=== PATIENT | male | born 1945 | race Caucasian/White ===

== ENCOUNTER 2022-09-29 09:53 | Outpatient (REF) | payer MEDICARE, SELFPAY ==
--- NOTE | ~2022-09-29 | XR_ITS ---
EXAMINATION: XR lumbar spine 4V min CLINICAL INFORMATION: Reason for Exam M54.40 - Lumbago with sciatica, unspecified side COMPARISON: None TECHNIQUE: 5 views of the lumbar spine FINDINGS: 5 nonrib-bearing lumbar-type vertebral bodies. Vertebral body heights are maintained. Leftward scoliosis of the lumbar spine. Grade 1 anterolisthesis of L5 on S1. Grade 1 anterolisthesis of L4 on L5. No subluxation between flexion and extension views Moderate multilevel degenerative disc disease with loss of disc space height, facet arthropathy and disc osteophyte complexes. This is worst at L4/L5. Paravertebral soft tissues are unremarkable. XR/XR lumbar spine 4V min IMPRESSION: 1. Moderate spondylosis of the lumbar spine, as above detailed. 2. Spondylolisthesis, as above detailed.
== END 2022-09-29 09:54 | disposition home or self-care (01) ==
LOC: HO.HOSX 09:53
PROVIDERS: PCP Nurse Practitioner Family; Visit Provider Physician Assistant
DX: M54.40 Lumbago with sciatica, unspecified side (principal)
CPT/HCPCS: 72110; 99202

== ENCOUNTER 2023-01-04 14:07 | Outpatient (AMB) | payer MEDICARE, SELFPAY ==
--- NOTE | 2023-01-04 14:59 | A.OFFVIS_ITS ---
Intake Intake Visit Reasons: Pre-op visit Intake Note: Mr. 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: No Information Interpreted: non-clinical & clinical Allergies neomycin Allergy (Intermediate, Verified 10/18/22 12:22) eye ointment caused eye swelling oxycodone Allergy (Intermediate, Verified 10/18/22 12:17) Vomiting steri strips Allergy (Severe, Uncoded 10/18/22 12:17) blisters/pussy infection PFSH Medical History (Updated 10/18/22 @ 12:07 by Carol Zamora, RN) Arthritis Back pain Elevated cholesterol GERD (gastroesophageal reflux disease) Gout HTN (hypertension) Renal calculi Surgical History (Updated 10/18/22 @ 12:15 by Carol Zamora, RN) H/O colonoscopy History of back surgery History of carpal tunnel release History of esophagogastroduodenoscopy (EGD) History of surgery on wrist Hx of cataract extraction Hx of cholecystectomy Hx of decompression of ulnar nerve Hx of hernia repair Hx of lithotripsy Hx of meniscectomy of right knee Hx of rotator cuff surgery Hx of sinus surgery Hx of total knee replacement Hx of umbilical hernia repair Social History Are you a primary multi care technician to a significant other at home: No Do you presently have visiting nurse or other home services: No Patient Tobacco Use Status: Never used Tobacco Assessment & Plan Assessment & Plan (1) Back pain of lumbar region with sciatica: Code(s): M54.40 - Lumbago with sciatica, unspecified side Plan Dear colleague, On January 04 2023, I saw for preoperative visit Daniel Del Real . He scheduled to undergo an oblique lateral lumbar interbody fusion L3-4 and L4-5 this coming Monday for severe right lumbar radiculopathy. We went over the procedure and possible complications. We discussed expected postoperative course. I spent 15 minutes in this consult. I will keep you updated on his progress. Taiwo Tesfaye MD, PhD Spine Fellowship Trained Neurosurgeon Director, [facility] Medications: Discontinued tramadol 1-2 tabs orally every 6 hours PRN; partial fill upon request 40 tabs 0RF pain Coding Level of Care Code Est Pt Level 1 (81312) Diagnoses Back pain of lumbar region with sciatica M54.40
== END 2023-01-04 16:25 | disposition home or self-care (01) ==
PROVIDERS: PCP Nurse Practitioner Family; Visit Provider Neurological Surgery
DX: M54.40 Lumbago with sciatica, unspecified side (principal)

== ENCOUNTER → 2023-01-04 14:07 | Outpatient (BNVA) | payer MEDICARE, SELFPAY | PROVIDERS: PCP Nurse Practitioner Family; Visit Provider Neurological Surgery | DX: M54.40 Lumbago with sciatica, unspecified side (principal) | CPT/HCPCS: 99211 ==

== ENCOUNTER 2023-01-09 07:34 | Inpatient (IN) | payer MEDICARE, SELFPAY ==
--- NOTE | 2022-10-18 | ECG_ITS ---
Test Reason : preop Blood Pressure : / mmHG Vent. Rate : 067 BPM Atrial Rate : 067 BPM P-R Int : 188 ms QRS Dur : 094 ms QT Int : 406 ms P-R-T Axes : 058 003 214 degrees QTc Int : 429 ms Sinus rhythm with occasional Premature ventricular complexes T wave abnormality, consider lateral ischemia Abnormal ECG No previous ECGs available Referred By: Stella Chavarria Electronically Signed By:ROSEANN SOLIS MD
[2022-10-18 12:22] VITALS: BP 150/94; PULSE 70; RESP 20; O2SAT 97; BMI 34.3
--- NOTE | 2022-10-18 12:38 | P.CONAN_ITS ---
HPI - Anesthesia Eval Consult details Narrative: 76yo M for Right L3,4,5 Transkambin Lumbar Interbody Fusion 10/31/22 PMFSH Active Problems Active Problems: All Active Problems (Updated 10/18/22 @ 12:07 by Carol Zamora RN) Back pain of lumbar region with sciatica (Acute) Past Medical History Medical History (Updated 10/18/22 @ 12:07 by Carol Zamora RN) Arthritis Back pain Elevated cholesterol GERD (gastroesophageal reflux disease) Gout HTN (hypertension) Renal calculi Family History Family history of problems with anesthesia: No Surgical History Surgical History (Updated 10/18/22 @ 12:15 by Carol Zamora RN) H/O colonoscopy History of back surgery History of carpal tunnel release History of esophagogastroduodenoscopy (EGD) History of surgery on wrist Hx of cataract extraction Hx of cholecystectomy Hx of decompression of ulnar nerve Hx of hernia repair Hx of lithotripsy Hx of meniscectomy of right knee Hx of rotator cuff surgery Hx of sinus surgery Hx of total knee replacement Hx of umbilical hernia repair History of Problems with Anesthesia: Yes (Severe N/V after last back surgery) Social History Social History Are you a primary career discovery teacher to a significant other at home: No Do you presently have visiting nurse or other home services: No Patient Tobacco Use Status: Never used Tobacco Use of substances other than those prescribed or required for medical reasons: No Have you been hit, kicked, punched, or otherwise hurt by someone within the past year? If so, by whom?: No Are you DNR?: Yes Advance Directives Information Provided: Yes (as above noted-will bring copies DOS) Advance Directives on File: No Recently lost weight without trying: No Eating poorly because of decreased appetite: No Nutrition Risks: Surgical patient >75years Poor oral hygiene: No (missing tooth upper left) Narrative Narrative: No recent illness No CP/SOB within limits of pain. Minimal activity. Meds Allergies Allergy/AdvReac Type Severity Reaction Status Date / Time neomycin Allergy Intermediate eye Verified 10/18/22 12:22 ointment caused eye swelling oxycodone Allergy Intermediate Vomiting Verified 10/18/22 12:17 steri strips Allergy Severe blisters/pussy Uncoded 10/18/22 12:17 infection Home Medications Medication Instructions Recorded Confirmed Last Taken Type allopurinol 100 mg tablet 100 mg PO QAM 05/01/23 05/02/23 Unknown History celecoxib 100 mg capsule 100 mg PO TID 10/17/22 10/18/22 Unknown History enalapril maleate 20 mg tablet 40 mg PO BID 10/17/22 10/18/22 Unknown History fluticasone propionate 50 1 spray intranasal BEDTIME 10/17/22 10/18/22 Unknown History mcg/actuation nasal spray,suspension gabapentin 300 mg capsule 300 mg PO TID 10/17/22 10/18/22 Unknown History mirabegron 25 mg tablet,extended 25 mg PO BID 10/17/22 10/18/22 Unknown History release 24 hr (Myrbetriq) omeprazole 10 mg capsule,delayed 20 mg PO QPM 10/17/22 10/18/22 Unknown History release rosuvastatin 10 mg tablet 10 mg PO 3XW 10/17/22 10/18/22 Unknown History verapamil 240 mg 24 hr 240 mg PO BID 10/17/22 10/18/22 Unknown History capsule,extended release calcium carbonate 600 mg-vitamin 1 tab PO DAILY 10/18/22 10/18/22 Unknown History D3 5 mcg (200 unit) tablet tramadol 50 mg tablet 50 mg PO Q6H PRN pain 10/18/22 10/18/22 Unknown History Exam Exam Date and Time: October 18, 2022 1238 Height,Weight and Vital Signs: Height 5 ft 8 in Weight 102.2 kg Last Vital Signs Pulse 70 10/18/22 12:22 Resp 20 10/18/22 12:22 BP 150/94 H 10/18/22 12:22 Pulse Ox 97 10/18/22 12:22 O2 Del Method Room Air 10/18/22 12:22 Airway Mallampati Class: I TM Dist: >3cm Neck ROM: Full Loose/Missing/Broken Teeth: Yes (1 x molar pulled, crowened molars) Heart: RRR Lungs: CTAB Assessment and Plan Assessment Anesthesia Assessment: Anesthesia Plan Discussed and PAT Visit Final Anesthetic Review Family History of Problems with Anesthesia: No History of Problems with Anesthesia: Yes (Severe N/V after last back surgery)
[2022-10-18 13:20] LABS: Hematocrit 44.5 % (42.0-52.0); Hemoglobin 14.5 g/dl (14.0-18.0); Mean Corpuscular HGB Conc 32.6 g/dl (31.0-36.0); Mean Corpuscular Hemoglobin 32.2 pg (27.0-33.0); Mean Corpuscular Volume 98.9 fL (80.0-98.0); Mean Platelet Volume 9.6 fL (9.4-12.4); Platelet Count 236 X10*3/uL (160-400); Red Cell Distribution Width 13.2 % (11.0-16.0)
[2022-10-18 13:41] LABS: Anion Gap 10 (12-20); Blood Urea Nitrogen 16 mg/dL (9-16); Calcium 9.9 mg/dL (8.4-10.2); Carbon Dioxide 31 mmol/L (22-29); Chloride 106 mmol/L (96-108); Creatinine Clr Calc Pharmacy 67.8; Estimated Glomerular Filt Rate > 60; Glucose Random 83 mg/dL (60-115); Potassium 4.8 mmol/L (3.3-5.1); Sodium 142 mmol/L (135-145)
--- NOTE | 2023-01-06 09:34 | HO.ANESPROP2 ---
Documented by User: Stella Chavarria NP 01/06/23 09:40 HPI - Anesthesia Eval Consult details Narrative: 77yo M for Right L3,4,5 Transkambin Lumbar Interbody Fusion PMFSH Active Problems Active Problems: All Active Problems (Updated 10/18/22 @ 12:07 by Carol Zamora RN) Back pain of lumbar region with sciatica (Acute) Past Medical History Medical History (Updated 10/18/22 @ 12:07 by Carol Zamora RN) Arthritis Back pain Elevated cholesterol GERD (gastroesophageal reflux disease) Gout HTN (hypertension) Renal calculi Family History Family history of problems with anesthesia: No Surgical History Surgical History (Updated 10/18/22 @ 12:15 by Carol Zamora RN) H/O colonoscopy History of back surgery History of carpal tunnel release History of esophagogastroduodenoscopy (EGD) History of surgery on wrist Hx of cataract extraction Hx of cholecystectomy Hx of decompression of ulnar nerve Hx of hernia repair Hx of lithotripsy Hx of meniscectomy of right knee Hx of rotator cuff surgery Hx of sinus surgery Hx of total knee replacement Hx of umbilical hernia repair History of Problems with Anesthesia: Yes Social History Social History Are you a primary health careers instructor to a significant other at home: No Do you presently have visiting nurse or other home services: No Patient Tobacco Use Status: Never used Tobacco Meds Allergies Allergy/AdvReac Type Severity Reaction Status Date / Time neomycin Allergy Intermediate eye Verified 10/18/22 12:22 ointment caused eye swelling oxycodone Allergy Intermediate Vomiting Verified 10/18/22 12:17 steri strips Allergy Severe blisters/pussy Uncoded 10/18/22 12:17 infection Home Medications Medication Instructions Recorded Confirmed Last Taken Type allopurinol 100 mg tablet 100 mg PO QAM 10/17/22 10/18/22 01/09/23 04:30 History celecoxib 100 mg capsule 100 mg PO TID 10/17/22 10/18/22 Unknown History enalapril maleate 20 mg tablet 40 mg PO BID 10/17/22 10/18/22 Unknown History fluticasone propionate 50 1 spray intranasal BEDTIME 10/17/22 10/18/22 Unknown History mcg/actuation nasal spray,suspension gabapentin 300 mg capsule 300 mg PO TID 10/17/22 10/18/22 01/09/23 04:30 History mirabegron 25 mg tablet,extended 25 mg PO BID 10/17/22 10/18/22 Unknown History release 24 hr (Myrbetriq) omeprazole 10 mg capsule,delayed 20 mg PO QPM 10/17/22 10/18/22 Unknown History release rosuvastatin 10 mg tablet 10 mg PO 3XW 10/17/22 10/18/22 Unknown History verapamil 240 mg 24 hr 240 mg PO BID 10/17/22 10/18/22 01/09/23 04:30 History capsule,extended release calcium carbonate 600 mg-vitamin 1 tab PO DAILY 10/18/22 10/18/22 Unknown History D3 5 mcg (200 unit) tablet Exam Exam Date and Time: January 06, 2023 0934 Height,Weight and Vital Signs: Height 5 ft 8 in Weight 102.2 kg Last Vital Signs Pulse 70 10/18/22 12:22 Resp 20 10/18/22 12:22 BP 150/94 H 10/18/22 12:22 Pulse Ox 97 10/18/22 12:22 O2 Del Method Room Air 10/18/22 12:22 Pertinent Lab Results Pertinent Lab Results: Laboratory Tests 10/18/22 10/18/22 13:07 13:07 WBC 8.0 RBC 4.50 L Hgb 14.5 Hct 44.5 MCV 98.9 H MCH 32.2 MCHC 32.6 RDW 13.2 Plt Count 236 MPV 9.6 Absolute Nucleated RBC 0.000 Nucleated RBC % (auto) 0.0 Sodium 142 Potassium 4.8 Chloride 106 Carbon Dioxide 31 H Anion Gap 10 L BUN 16 Creatinine 1.09 Estim Creat Clear Calc 67.8 Estimated GFR > 60 Random Glucose 83 Calcium 9.9 Narrative Narrative: EKG 10/2022 Vent. Rate : 067 BPM ? ? Atrial Rate : 067 BPM ?? P-R Int : 188 ms? QRS Dur : 094 ms ? ? QT Int : 406 ms ? ? ? P-R-T Axes : 058 003 214 degrees ?? QTc Int : 429 ms ? Sinus rhythm with occasional Premature ventricular complexes T wave abnormality, consider lateral ischemia Abnormal ECG No previous ECGs available ECHO LV systolic function is normal. Regional wall motion abnormalities no well visualized but grossly nml. LVEF 55-60%. Nml LV wall thickness. Mild DD. RV is nml size. AV is trileaflet and mildly thickened. No aortic stenosis Assessment and Plan Final Anesthetic Review Family History of Problems with Anesthesia: No History of Problems with Anesthesia: Yes Documented by User: Marin Izquierdo MD 01/09/23 07:34 [facility] Past Medical History Medical History (Updated 10/18/22 @ 12:07 by Carol Zamora, KELSY) Arthritis Back pain Elevated cholesterol GERD (gastroesophageal reflux disease) Gout HTN (hypertension) Renal calculi Surgical History Surgical History (Updated 10/18/22 @ 12:15 by Carol Zamora RN) H/O colonoscopy History of back surgery History of carpal tunnel release History of esophagogastroduodenoscopy (EGD) History of surgery on wrist Hx of cataract extraction Hx of cholecystectomy Hx of decompression of ulnar nerve Hx of hernia repair Hx of lithotripsy Hx of meniscectomy of right knee Hx of rotator cuff surgery Hx of sinus surgery Hx of total knee replacement Hx of umbilical hernia repair History of Problems with Anesthesia: Yes (ponv) Social History Social History Are you a primary health careers instructor to a significant other at home: No Do you presently have visiting nurse or other home services: No Patient Tobacco Use Status: Never used Tobacco Meds Allergies Allergy/AdvReac Type Severity Reaction Status Date / Time neomycin Allergy Intermediate eye Verified 10/18/22 12:22 ointment caused eye swelling oxycodone Allergy Intermediate Vomiting Verified 10/18/22 12:17 steri strips Allergy Severe blisters/pussy Uncoded 10/18/22 12:17 infection Home Medications Medication Instructions Recorded Confirmed Last Taken Type allopurinol 100 mg tablet 100 mg PO QAM 10/17/22 10/18/22 01/09/23 04:30 History celecoxib 100 mg capsule 100 mg PO TID 10/17/22 10/18/22 Unknown History enalapril maleate 20 mg tablet 40 mg PO BID 10/17/22 10/18/22 Unknown History fluticasone propionate 50 1 spray intranasal BEDTIME 10/17/22 10/18/22 Unknown History mcg/actuation nasal spray,suspension gabapentin 300 mg capsule 300 mg PO TID 10/17/22 10/18/22 01/09/23 04:30 History mirabegron 25 mg tablet,extended 25 mg PO BID 10/17/22 10/18/22 Unknown History release 24 hr (Myrbetriq) omeprazole 10 mg capsule,delayed 20 mg PO QPM 10/17/22 10/18/22 Unknown History release rosuvastatin 10 mg tablet 10 mg PO 3XW 10/17/22 10/18/22 Unknown History verapamil 240 mg 24 hr 240 mg PO BID 10/17/22 10/18/22 01/09/23 04:30 History capsule,extended release calcium carbonate 600 mg-vitamin 1 tab PO DAILY 10/18/22 10/18/22 Unknown History D3 5 mcg (200 unit) tablet Exam Airway Mallampati Class: III TM Dist: >3cm Neck ROM: Poor Heart: rrr Assessment and Plan Assessment Anesthesia Assessment: Anesthesia Plan Discussed and Chart Reviewed Final Anesthetic Review History of Problems with Anesthesia: Yes (ponv) NPO: Yes ASA Class: III Final Preanesthetic Review: No Changes in Pt Med Stat, Meds/Allgs Chart Reviewed, Consent Obtained/Reviewed, Anes Risks/Benef Reviewed and DNR Form (If Appl.) Patient Risk: Intermediate Procedure Risk: Intermediate Anesthetic Plan Anesthetic Plan: GA and Agree w/ Assess. and Plan Disposition: Standard PACU
[2023-01-09] VITALS (27 sets, daily range): BP systolic 97–159; BP diastolic 50–89; PULSE 67–89; RESP 14–18; TEMP 36.1–36.8; O2SAT 89–98
--- NOTE | ~2023-01-09 | FL_ITS ---
EXAMINATION: FL FLUOROSCOPY-GUIDANCE IN OR CLINICAL INFORMATION: Lumbar interbody fusion. COMPARISON: 01/06/2023 and 09/29/2022. TECHNIQUE: Fluoroscopy Supervised By: Dr. Tesfaye. Fluoroscopy Time: 3.2 minutes. Cumulative Dose: 240 mGy. DAP: 47 Gycm2. Images: 2. FINDINGS: 2 intraoperative images demonstrate posterior fusion with pedicle screws and rods L3-L5 and interdisc spacers in place. Hardware appears intact. FL/FL guidance in OR IMPRESSION: Intraoperative fluoroscopy for orthopedic procedure.
[2023-01-09] MEDS: methocarbamoL 750 MG TABLET PO (06:38)
[2023-01-09] MEDS: Lactated Ringers 1,000 ML 100 ML IVCONT (06:46)
--- NOTE | 2023-01-09 07:20 | MHC.SHP ---
Pre-Procedural Eval Section A Date of Service: 01/09/23 The patient is an INPATIENT: No Changes since office visit: No Cold of Flu in the past 2 weeks, No New Medical Problems, No Changes in Medication and No Patient answered all questions The History & Physical has been completed within 30 days and I have reviewed it.: No Section B Chief Complaint: Lumbago with sciatica, unspecified side,Scoliosis Relevant Family History (Specify if Yes): No Relevant Social History: None Present Medications: None Medical History: No relevant PMH History of Previous Operations: No relevant previous surgery Allergies: Allergies Allergy/AdvReac Type Severity Reaction Status Date / Time neomycin Allergy Intermediate eye Verified 10/18/22 12:22 ointment caused eye swelling oxycodone Allergy Intermediate Vomiting Verified 10/18/22 12:17 steri strips Allergy Severe blisters/pussy Uncoded 10/18/22 12:17 infection Review of Systems Sugical H&P ROS: Negative: Constitution, Cardiovascular, Respiratory, Neurological, Psychiatric, Hem-Onc, Allergic/Immunologic, Gastrointestinal, Genitourinary, Musculoskeletal, Integumentary, Endocrine and Eyes/Ears/Nose/Throat Exam Surgical H&P Exam: Not Evaluated: HEENT, Not Evaluated: Heart, Not Evaluated: Lungs, Not Evaluated: Extremities, Not Evaluated: Abdomen, Not Evaluated: Skin and Not Evaluated: Neurological Plan Diagnosis/Plan: Unchanged I have reviewed the history and physical and performed a pertinent physical examination on my patient. No changes have occurred unless specified. L3-4, L4-5 oblique lateral lumbar interbody fusion, right side approach Time Spent With Patient Time: Total time managing care of this patient today _10___ minutes.
[2023-01-09] MEDS: fentaNYL citrate/PF 100 MCG/2 ML VIAL 25 MCG IVPUSH ×4 (11:28→11:52)
--- NOTE | 2023-01-09 11:50 | W.PM.OPN ---
Operative Note Operative Note Date of Service: 01/09/23 Narrative: Preoperative Diagnosis: (1) lumbar degenerative scoliosis; spinal stenosis; neurogenic claudication (2) Procedure: 1) L3-4 and L4-5 oblique lateral lumbar interbody fusion with discectomy, preparation of the endplates and placement of a bullet cage packed with allograft, anterior to the transverse process and modified prone position, with intraoperative biplanar fluoroscopy imaging and electrophysiological monitoring 2) L3-L5 posterior minimally invasive pedicle screw placement and posterior lateral instrumentation and fusion with electrophysiological monitoring Consent Informed Consent was obtained for this operation. I have explained the nature, purpose and benefits of the operation. I have discussed the risks and benefit of the operation including possible complications or adverse events with patient/family. Alternative(s) were discussed with the patient with their relative benefits and risks as well as the consequences of not accepting the operation were included in obtaining consent. Surgeon: LORNA MCKINNON MD, PHD Procedure Assisted By: Nando Calix PA-C Description of Procedure: Since this 77-year-old male suffering from severe right lumbar radiculopathy due to lumbar degenerative scoliosis and spinal stenosis. The patient was offered an oblique lumbar lateral interbody fusion followed by a posterior lateral instrumented fusion L3-L5. The procedure and complications were explained and the patient was consented. The patient was brought to the operating room and endotracheally intubated. The patient was put in a prone position on the [place] spine table. 2C arms were installed for fluoroscopy. Prepping and draping was done followed by timeout. The landmarks, including spinal processes, transverse processes, disc space, endplates and pedicles are identified and marked. The following steps are taken for the L3-4 and L4-5 levels: Cage sizes 10 mm high and 33 mm long titanium . A small incision was made superior to the mid iliac crest and then using biplanar fluoroscopy visualization, under electrophysiological monitoring and stimulation, we introduced an electrophysiological probe through the retroperitoneal space into the desired disc, anterior to the transverse process and then passed it into the disc space after finding a silent window. The sleeve was retained and the probe was removed, then the K wire was passed sequentially into the disc space. A dilating tube was then passed along the same route. Following this, a working channel was manually held in position while a series of disc cleaning tools were passed through the channel to remove the affected disc under clear and direct biplanar fluoroscopic visualization, decompress the nerve roots and equal corticated vertebral endplates at this segment. Arthrodesis of the intervertebral space for an anterior retroperitoneal exposure and application of intervertebral biomechanical device was then accomplished by using the working channel that had been placed into the retroperitoneal space anterior to the transverse process. After adequate decompression and preparation of the endplates, we then put allograft anterior into the disc space followed by a titanium interbody spacer, which is packed tightly with allograft bone for stabilization and arthrodesis of the anterior vertebral space and inserted the cage into the midportion of the intervertebral disc. This again was done on the biplanar fluoroscopic visualization. All bone was confined to the borders of the disc space. The following steps are then taken for the L3-L5 level: Bilateral L3, L4 and L5 screws with a diameter of 6.5 x 45 mm. 2C arms were installed for fluoroscopy. A right paramedian incision was made lateral from the right L3 pedicle. The Pediguard tap was used to create a transpedicular trajectory into the vertebral body. The K wire was inserted. The steps were repeated for the left L3, bilateral L4 and L5 pedicles, A specially designed instrument was passed over the K wires to decorticate the posterior lateral gutter. A total of 6 pedicle screws were inserted with the above-mentioned diameters for the L3-L5 level. Bilaterally a 75 mm vivi was inserted and locked down with locking caps. Final x-rays and AP and lateral projection showed good position of the interbody device and instrumentation. Allograft was laid down in the posterior lateral gutter to complete the posterior lateral fusion. The paramedian incisions and the incision in the flank were closed in 2 layers. Significant oozing was seen from the flank incision and a fair amount of blood loss occurred. Dermabond was used to approximate the incisions. An OpSite with Tegaderm was used to cover the incision. All sponge and needle counts were correct. The patient was extubated and transported in a stable condition to the recovery room. This procedure was done with the aid of a physican's restaurant assistant manager as a qualified resident was not available. The physician restaurant assistant manager was critical for the following aspects of surgery : Insertion of the rods, locking down with locking caps and hemostasis Anesthesia: General Estimated Blood Loss (ml): 250 Specimen: None Duration of Surgery: 2.5 hours Postoperative Plan: Admit to floor for monitoring
[2023-01-09] MEDS: HYDROmorphone HCl 0.5 MG/0.5 ML SYRINGE 0.25 MG IVPUSH ×4 (11:57→12:13)
[2023-01-09] MEDS: ceFAZolin Sodium/Dextrose,Iso 2 GM/50 ML PIGGYBACK IV ×2 (14:34→19:25)
[2023-01-09] MEDS: 0.9 % Sodium Chloride 1,000 ML 75 ML IVCONT (14:42)
--- NOTE | 2023-01-09 14:54 | PHA.MEDREC ---
med rec completed, no issues Pharmacy Consult ? Medication Reconciliation Pharmacy has completed the medication reconciliation.
[2023-01-09] MEDS: Acetaminophen 1,000 MG/100 ML PIGGYBACK 400 MG IV ×2 (15:10→22:06)
[2023-01-09] MEDS: Gabapentin 300 MG CAPSULE PO ×2 (15:11→19:20)
[2023-01-09] MEDS: Ketorolac Tromethamine 15 MG/ML VIAL IVPUSH ×2 (16:36→23:11)
[2023-01-09] MEDS: HYDROmorphone HCl 1 MG/ML SYRINGE IVPUSH ×2 (18:04→23:49)
[2023-01-09] MEDS: Atorvastatin Calcium 40 MG TABLET PO (19:20)
[2023-01-09] MEDS: Docusate Sodium 100 MG CAPSULE PO (19:20)
[2023-01-09] MEDS: Mirabegron 25 MG TAB.ER.24H PO (19:20)
[2023-01-09] MEDS: Enalapril Maleate 10 MG TABLET 20 MG PO (19:21)
[2023-01-09] MEDS: VerapamiL HCL SR 240 MG TABLET.ER PO (19:21)
[2023-01-09] MEDS: Omeprazole 20 MG CAPSULE.DR PO (19:21)
[2023-01-09] MEDS: Fluticasone Propionate Nasal 16 GM SPRAY 1 SPRAY NOSTRIL-B (19:22)
[2023-01-10] MEDS: ceFAZolin Sodium/Dextrose,Iso 2 GM/50 ML PIGGYBACK IV (01:56)
[2023-01-10] MEDS: 0.9 % Sodium Chloride 1,000 ML 75 ML IVCONT (03:42)
[2023-01-10] MEDS: Acetaminophen 1,000 MG/100 ML PIGGYBACK 400 MG IV (03:48)
[2023-01-10 03:54] VITALS: BP 129/62; PULSE 74; RESP 17; TEMP 36.6; O2SAT 95
[2023-01-10] MEDS: Ketorolac Tromethamine 15 MG/ML VIAL IVPUSH (04:58)
--- NOTE | 2023-01-10 05:05 | PC.NURSE ---
Pt was stable all night, Neuro WNL, still with mild and on and off surgical site pain, due meds alternate with prn were effective, pt was able to ambulate along the hallway and tolerated, dressings were soaked with blood, dressing changed and no persistent oozing noted.
[2023-01-10] MEDS: HYDROmorphone HCl 1 MG/ML SYRINGE IVPUSH (06:31)
[2023-01-10 07:29] VITALS: BP 151/72; PULSE 76; RESP 16; TEMP 36.6; O2SAT 94
--- NOTE | 2023-01-10 07:43 | HO.NEUROPN_ITS ---
Neurosurgery Operative Note Date of Service: 01/10/23 Narrative: POD: 1 Procedure: L3-4, L4-5 Transkambin lumbar fusion. Patient reports he is up walking around is otherwise doing well. He feels his symptoms are much better than pre-operatively. He still reports mild pain 4/10, with good relief with pain medication. He is voiding well, tolerating diet. Afebrile, vital signs stable. Full strength 5/5 UE / LE. Back dressings have some staining without signs of hematoma. No active sanguineous drainage. Area is dry. POD: 1 Procedure: L3-4, L4-5 transkambin lumbar fusion otherwise doing well. Has met all medical criteria for discharge. Will be sending him home. Seen at bedside w kenneth Tesfaye.
--- NOTE | 2023-01-10 07:52 | PM.DS ---
DS: Providers Provider Date of Service: 01/09/23 <ROMULO Lopez - Last Filed: 01/10/23 07:59> Date of admission: 01/09/23 07:34 <ROMULO Lopez Last Filed: 01/10/23 07:59> Date of discharge: 01/10/23 <ROMULO Lopez - Last Filed: 01/10/23 07:59> Primary care physician: ELVER Campos <ROMULO Lopez - Last Filed: 01/10/23 07:59> DS: Diagnosis Discharge Diagnosis (1) Back pain of lumbar region with sciatica: Status: Acute <ROMULO Lopez Last Filed: 01/10/23 07:59> DS: Summary Time Spent with Patient Time attestation: Total time managing care of this patient today ____ minutes. <ROMULO Lopez Last Filed: 01/10/23 07:59> Discharge coordination time: Less than 30 minutes <ROMULO Pelayo - Last Filed: 01/10/23 08:17> Quality: Safe Use of Opioids Does Pt have an Active Cancer Diagnosis on the Problem List?: No <ROMULO Pelayo Last Filed: 01/10/23 08:17> Quality: Stroke Does the patient have a stroke diagnosis?: No <ROMULO Pelayo Last Filed: 01/10/23 08:17> Physical Exam Vital Signs: Vital Signs: Last Vital Signs Temp 97.9 F 01/10/23 07:29 Pulse 76 01/10/23 07:29 Resp 16 01/10/23 07:29 BP 151/72 H 01/10/23 07:29 Pulse Ox 94 01/10/23 07:29 O2 Del Method Room Air 01/10/23 07:29 O2 Flow Rate 2 01/09/23 13:40 BMI result Body Mass Index 34.3 <ROMULO Lopez Last Filed: 01/10/23 07:59> Discharge Plan Discharge Anticipated Discharge Date/Time: 01/10/23 07:54 <ROMULO Lopez Last Filed: 01/10/23 07:59> Patient Disposition: Home, Self-Care <ROMULO Lopez Filed: 01/10/23 07:59> Discharge Diagnosis: S/P Lumbar fusion <ROMULO Lopez - Last Filed: 01/10/23 07:59> S/P Lumbar fusion <ROMULO Pelayo - Last Filed: 01/10/23 08:17> Referrals: Danisha Ayon, [employer]ING AND [employer]ESSING SUPERVISOR [Primary Care Provider] - 1 Week <ROMULO Lopez - Last Filed: 01/10/23 07:59> Discharge Medications: New hydrocodone-acetaminophen 5-300 mg tablet See Rx Instructions .ROUTE .COMPLEX PRN (Reason: pain) Qty: 40 0RF Rx Instructions: 1-2 tabs as needed po q4h for moderate pain. Partial Fill upon patient request. methocarbamol 500 mg tablet 500 mg PO TID Qty: 30 0RF Continued tramadol 50 mg tablet 50 mg PO Q6H PRN (Reason: pain) Qty: 30 0RF enalapril maleate 20 mg tablet 20 mg PO BID allopurinol 100 mg tablet 100 mg PO QAM omeprazole 10 mg capsule,delayed release(DR/EC) 10 mg PO BEDTIME gabapentin 300 mg capsule 300 mg PO TID fluticasone propionate 50 mcg/actuation spray,suspension 1 spray intranasal BEDTIME verapamil 240 mg capsule,ext rel. pellets 24 hr 240 mg PO BID rosuvastatin 10 mg tablet 10 mg PO 3XW Myrbetriq 25 mg tablet extended release 24 hr 25 mg PO BEDTIME calcium carbonate-vitamin D3 600 mg-5 mcg (200 unit) Tablet 1 tab PO DAILY <ROMULO Lopez - Last Filed: 01/10/23 07:59> Discharge Orders: Discharge Order (Routine); Ordered 01/10/23 Ordered By: Migue Ellison <ORMULO Lopez - Last Filed: 01/10/23 07:59> Diet: Advance to usual diet <ROMULO Lopez - Last Filed: 01/10/23 07:59> Advance to usual diet <ROMULO Pelayo - Last Filed: 01/10/23 08:17> Activity on Discharge: As tolerated <ROMULO Lopez Last Filed: 01/10/23 07:59> As tolerated <ROMULO Pelayo - Last Filed: 01/10/23 08:17> Stand Alone Forms: Patient Portal Discharge page <ROMULO Lopez - Last Filed: 01/10/23 07:59> Activity Restrictions/Additional Instructions: After your spinal surgery we ask you to observe the following restrictions/guidelines: Activity: It is normal to feel some discomfort as you increase your activity, but that will improve with time. We ask you avoid heavy lifting or acitivities that cause pain. As a general rule, 8lbs is a safe limit for lifting right after surgery. Walk as much as you feel comfortable but not to exhaustion. You will feel extra tired the first few days after surgery. Stay well hydrated. It is OK to walk up and down stairs You may return to driving when you are off narcotics (such as vicodin, oxycodone, dilaudid, etc), and you are back to normal functional capacity. If you have any concerns please check with office before driving. Return to work is specific to each patient and each surgery, so please speak with your doctor/PA at first follow up. Please bring paperwork such as FMLA at that time if you need it filled out. Medications: We will give you a short supply of narcotics after surgery (usually one weeks worth). If you need more please call the office but do not use more than prescribed. You will need to give our office 48 hours notice if you need narcotics refilled and we do not fill narcotics on weekends or evenings. If you are on a narcotic, it is a good idea to take a stool softener such as colace or senna to avoid constipation If you take blood thinner such as aspirin, Plavix, Coumadin, Effient, Eliquis etc for conditions such as Afib, DVT, Pulmonary embolus, coronary disease, stents etc please speak with your surgeon about specific details as to when you can resume these medications. You can resume NSAIDs on post op day 1 (eg: Motrin, Naproxen, etc). Follow up: Please call the office, , after surgery to arrange a 3 week follow up for wound check. Wound Care: You may remove your dressing on the first day after surgery. You may leave open to air. Please do not remove the steri strips underneath. they will fall off on their own in one week. IT IS NORMAL FOR THE WOUND TO OOZE OR BE BLOODY FOR A FEW DAYS AFTER SURGERY. IF THIS HAPPENS JUST PLACE NEW DRESSING OVER IT TO AVOID STAINING CLOTHES. You may shower on post op day # 1 We ask that you do not let the water soak the wound. If it does get wet, just towel dry lightly. Please do not scrub your incision or place any type of chemical/ointment on the wound. No tub baths, pools or jacuzzis for one month. If you have any leaking or redness from your wound, or fevers, please call office <ROMULO Lopez - Last Filed: 01/10/23 07:59> Care Plan Goals: D/C home <ROMULO Lopez - Last Filed: 01/10/23 07:59> Health Concerns: None <ROMULO Lopez - Last Filed: 01/10/23 07:59> Plan of Treatment: D/C home <ROMULO Lopez - Last Filed: 01/10/23 07:59> Assessment: Stable <ROMULO Lopez - Last Filed: 01/10/23 07:59>
[2023-01-10] MEDS: Enalapril Maleate 10 MG TABLET 20 MG PO (08:04)
[2023-01-10] MEDS: Docusate Sodium 100 MG CAPSULE PO (08:04)
[2023-01-10] MEDS: Gabapentin 300 MG CAPSULE PO (08:04)
[2023-01-10] MEDS: allopurinoL 100 MG TABLET PO (08:04)
[2023-01-10] MEDS: VerapamiL HCL SR 240 MG TABLET.ER PO (08:04)
--- NOTE | 2023-01-10 08:37 | MHC.CM.PN ---
pt dcd home no skilled servcies ordered by
--- NOTE | 2023-01-10 14:32 | HO.POSTANES ---
Post Anesthesia Evaluation Post Anesthesia Evaluation Date of Service: 01/10/23 Vital Signs: Vital Signs Temp Pulse Resp BP Pulse Ox O2 Del Method 01/10/23 07:29 97.9 F 76 16 151/72 H 94 Room Air 01/10/23 03:54 97.9 F 74 17 129/62 95 Room Air Anesthesia: General Endotracheal-GETA Mental Status: Awake Pain Control: Satisfactory Nausea/Vomiting: None Hydration: Adequate Anesthesia-Related Issues: No Anes. Related Issues
== END 2023-01-10 10:10 | disposition home or self-care (01) | DRG 458 ==
LOC: HO.SSSA 07:44 → HO.S3 13:50
PROVIDERS: Neurological Surgery; Nurse Practitioner; Admitting Provider Physician Assistant; PCP Nurse Practitioner Family; Visit Provider Physician Assistant
PROC: 0SG00A0 Fusion of Lumbar Vertebral Joint with Interbody Fusion Device, Anterior Approach, Anterior Column, Open Approach (ICD-10-PCS; principal; 2023-01-09 07:30)
DX: M48.062 Spinal stenosis, lumbar region with neurogenic claudication (principal); M41.56 Other secondary scoliosis, lumbar region; E78.00 Pure hypercholesterolemia, unspecified; K21.9 Gastro-esophageal reflux disease without esophagitis; I10 Essential (primary) hypertension; M10.9 Gout, unspecified; Z79.899 Other long term (current) drug therapy
CPT/HCPCS: 36415; 80048; 85027; 93005; 97116; 97161; C1713; J0131; J0330; J0690; J1100; J1170; J1885; J2250; J2370; J2371; J2405; J3010; L8699

== ENCOUNTER → 2023-01-09 07:34 | Outpatient (BNV) | payer MEDICARE, SELFPAY | PROVIDERS: Admitting Provider Physician Assistant; PCP Nurse Practitioner Family; Visit Provider Neurological Surgery | DX: M48.062 Spinal stenosis, lumbar region with neurogenic claudication (principal); M41.9 Scoliosis, unspecified | CPT/HCPCS: 20930; 22558; 22585; 22612; 22614; 22840; 22853; 63056; 63057 ==

== ENCOUNTER 2023-01-30 13:51 | Outpatient (AMB) | payer MEDICARE, SELFPAY ==
--- NOTE | 2023-01-27 09:47 | ...WebTmpl.AM.PHNO ---
Nursing Note Patient was called this morning to discuss message that was left with medical concierge. He is s/p L3-4 L4-5 Transkambin on 01/09. He states that yesterday he incidentally discovered a lump on his back lateral to the incision site. He states that yellow / bloody fluid was expressed from the lump by his with mild-moderate pressure. He states that the area oozed from last night until this morning, but he believes it has stopped producing any additional fluid. He estimates the lump to be roughly 1/2 inch by 3/4 inch. He reports no constitutional symptoms, no fever, no chills, no sweating, no weakness. Case discussed with Dr. Tesfaye, who agrees that the patient should be started on an Abx regimen today. Will prescribe Doxycycline 100mg BID x 7 days. He has his 3 week f/u on Monday, but will be offered a sooner appointment first thing on Monday. Patient will be encouraged to call us back for any other concerns or issues / symptom development over the weekend.
--- NOTE | 2023-01-30 14:21 | HO.SPINEOV ---
Intake Intake Visit Reasons: 3 week post op Allergies neomycin Allergy (Intermediate, Verified 10/18/22 12:22) eye ointment caused eye swelling oxycodone Allergy (Intermediate, Verified 10/18/22 12:17) Vomiting steri strips Allergy (Severe, Uncoded 10/18/22 12:17) blisters/pussy infection Assessment & Plan Assessment & Plan (1) S/P lumbar fusion: Code(s): Z98.1 - Arthrodesis status Plan Mr. Del Real was seen early today for his 3 week follow up alongside evaluation of incision site lump with drainage s/p L3-4 L4-5 Transkambin on 01/09. See phone note under nursing tab for further information regarding this issue. He ambulated into the office today with his , and reports that he is able to remain active most days, but has some days where he finds himself unable to move much. He states that he has 2-3 days of good movement / pain relief, then will go an entire day where he has significant pain which restricts his movement. He endorses good relief of pain with Hydromorphone, and states he has been taking it alongside OTC analgesics (Tylenol / Motrin). We discussed continued post-op care and healing course. In the office today he has a small (.5cm) linear laceration overlying one of his R sided incisions that are proximal to midline. The area is well healing with layer of crust and no surrounding erythema, edema, of fluctuance. The area is clean, dry and appears well healing. He endorses no continued drainage over the weekend, and states that the area is just intermittently pruritic. He reports that he did pickup the Doxycycline 100mg that was prescribed for him, and states that he has been taking it BID since picking it up Saturday 01/27. He was encouraged to continue taking the full course of this medication. His Hydromorphone 2mg q6h was also refilled during this visit. He may be seen again in the office in 4 weeks for F/U. The patient was seen alongside Dr. Tesfaye who also evaluated the patient and agrees to this plan. Total amount of time spent in this visit was 20 minutes in discussion of symptoms, post-operative care, and subsequent plan of care Migue Tesfaye MD,PhD [facility] Medications: New doxycycline hyclate 100 mg PO BID 14 caps 0RF infection prophylaxis 7 days Refilled hydromorphone Partial Fill upon patient request. 2 mg PO Q6H PRN 20 tabs 0RF severe pain Discontinued tramadol 1-2 tabs orally every 6 hours PRN; partial fill upon request 40 tabs 0RF pain Coding Level of Care Code Tele Est Pt Level 3 (36287) Diagnoses S/P lumbar fusion Z98.1
== END 2023-01-30 14:29 | disposition home or self-care (01) ==
PROVIDERS: PCP Nurse Practitioner Family; Visit Provider Neurological Surgery
DX: Z98.1 Arthrodesis status (principal)
CPT/HCPCS: 99213

== ENCOUNTER → 2023-01-30 13:51 | Outpatient (BNVA) | payer MEDICARE, SELFPAY | PROVIDERS: PCP Nurse Practitioner Family; Visit Provider Neurological Surgery | DX: Z98.1 Arthrodesis status (principal) | CPT/HCPCS: 99212 ==

== ENCOUNTER 2023-02-28 13:32 | Outpatient (AMB) | payer MEDICARE, SELFPAY ==
--- NOTE | 2023-02-28 13:54 | HO.SPINEOV ---
Intake Intake Visit Reasons: 4 week follow up Intake Note: Mr. Del Real is here today for his 4wk follow up. Special Education Coordinator Required: No Allergies neomycin Allergy (Intermediate, Verified 10/18/22 12:22) eye ointment caused eye swelling oxycodone Allergy (Intermediate, Verified 10/18/22 12:17) Vomiting steri strips Allergy (Severe, Uncoded 10/18/22 12:17) blisters/pussy infection Assessment & Plan Assessment & Plan (1) S/P lumbar fusion: Code(s): Z98.1 - Arthrodesis status Plan Daniel was seen today for his 2nd postoperative visit. He is s/p L3-4 and L4-5 oblique lateral lumbar interbody fusion with discectomy. His postoperative course was initially complicated by some incision site drainage accompanied by difficulty with ambulation and extensive pain. He comes in the office today and states that the majority of his symptoms have resolved. He reports that he now has multiple days in a row where he experiences no pain, but then will begin to experience pain again for 1-2 days. Overall he is very happy with the surgery, and states that he is not in pain majority of the time. He does have some posterior right-sided pain near the diskectomy incision site but does not feel this is a significant issue at this time. We discussed the possibility of some protracted pain on her around the incision site for his diskectomy. We spent much time discussing postoperative restrictions including what he can and cannot do to care for his property. On exam the patient is able to ambulate well without the assistance of a cane or walker. His incision sites are well healed, without erythema, edema, fluctuance, or purulence. The patient stated that he is not feeling is to come for follow-up, as he continues to improve day by day. He will be discharged the patient may call the office if he needs our consultation in the future. Total amount of time spent in this visit was 20 minutes in discussion of symptoms and subsequent plan of care. Migue Tesfaye MD,PhD [facility] Coding Level of Care Code Est Pt Level 3 (14449) Diagnoses S/P lumbar fusion Z98.1
== END 2023-02-28 14:46 | disposition home or self-care (01) ==
PROVIDERS: PCP Nurse Practitioner Family; Visit Provider Physician Assistant
DX: Z98.1 Arthrodesis status (principal)
CPT/HCPCS: 99024

== ENCOUNTER → 2023-02-28 13:32 | Outpatient (BNVA) | payer MEDICARE, SELFPAY | PROVIDERS: PCP Nurse Practitioner Family; Visit Provider Physician Assistant | DX: Z09 Encounter for follow-up examination after completed treatment for conditions other than malignant neoplasm (principal); Z98.1 Arthrodesis status | CPT/HCPCS: 99212 ==